=== PATIENT | female | born 1985 | race American Indian/Alaskan Native ===

== ENCOUNTER 2017-12-24 08:53 | Day surgery (SDC) | payer OTHER ==
[~2017-12-24 08:53] MED LIST: LACTATED RINGERS 1,000 ML IV SCH; PERCOCET 5/325 PO PRN; TORADOL IV PRN; VERSED IV NR; ZOFRAN IV PRN
[2017-12-24] MEDS ORDERED: ANCEF/STERILE WATER 2 GM/20 ML 2 GM/20 ML SYRINGE IV NR (10:00)
[2017-12-24] MEDS ORDERED: DILAUDID ONE (10:12)
[2017-12-24] MEDS ORDERED: DIPRIVAN 10 MG/ML IV ONE (10:12)
[2017-12-24] MEDS ORDERED: XYLOCAINE MPF 2% ONE (10:12)
--- NOTE | 2017-12-24 10:13 | Short Stay Summary ---
Short Stay Documentation Date of service: 12/24/17 Narrative H&P: Pt is a 32yo BF LMP 11/26/17 presents for surgical evaluation and treatment of prolonged heavy vaginal bleeding unresponsive to hormonal therapy. She is therefore scheduled for a Novasure endometrial ablation. - History Principal diagnosis: Menorrhagia H&P: obtained from office Past Medical History: No medical history Past Surgical History: No surgical history Social history: no significant social history, - Allergies and Medications Current Medications: Allergies No Known Allergies Allergy (Verified 12/24/17 07:29) Home Medications Medication Instructions Recorded Confirmed Last Taken Type No Known Home Medications [No 07/29/14 12/23/17 Unknown History Reported Home Medications] Active Medications Hydromorphone HCl (Dilaudid) 0.25 mg IV Q10MIN PRN PRN Reason: Pain, Moderate (4-6) Stop: 12/24/17 16:00 Lactated Ringer's (Lactated Ringers) 1,000 mls @ 100 mls/hr IV DIRECT SHANNA Last Admin: 12/24/17 09:59 Dose: 100 mls/hr Cefazolin Sodium (Ancef/Sterile Water 2 Gm/20 Ml) 2 gm in 20 mls @ 80 mls/hr IV PREOP NR; Protocol Ketorolac Tromethamine (Toradol) 30 mg IV ONCE PRN PRN Reason: Pain, Moderate (4-6) Midazolam HCl (Versed) 2 mg IV PREOP NR Stop: 12/24/17 23:59 Ondansetron HCl (Zofran) 4 mg IV ONCE PRN PRN Reason: Nausea And Vomiting Oxycodone/Acetaminophen (Percocet 5/325) 1 tab PO ONCE PRN PRN Reason: Pain, Moderate (4-6) - Physical exam General appearance: no acute distress Integumentary: no rash HEENT: Atraumatic Lungs: Clear to auscultation Breasts: deferred Heart: Regular rate Gastrointestinal: normal Female Genitourinary: deferred Rectal Exam: deferred Extremities: no ischemia, No edema Neurological: Normal gait, Normal speech - Brief post op/procedure progress note Date of procedure: 12/24/17 Pre-op diagnosis: Menorrhagia Post-op diagnosis: same Procedure: 1. Hysteroscopy 2. Novasure endometrial ablation Anesthesia: MAC Findings: An 8-10 weeks size uterus with moderate amounts of lush endometrium. No polyps or submucosal fibroids seen. Uterine cavity length 5.5cm width 4.8cm and 135 Ramirez of Power was used for 89 seconds. Surgeon: KATI ESCOBEDO Estimated blood loss: minimal Pathology: none Condition: stable - Hospital course Hospital course: Unremarkable. - Disposition Condition at discharge: Good Disposition: DC-01 TO HOME OR SELFCARE - Discharge Diagnoses (1) Menorrhagia with regular cycle Status: Resolved Short Stay Discharge Plan Activity: no restrictions Diet: regular Follow up with: ANNA PEDRAZA MD [Primary Care Provider] - 7 Days KATI ESCOBEDO MD [Staff Physician] - 14 Days Prescriptions: HYDROcodone/APAP 5-325 [[place] 5/325] 1 each PO Q6HR PRN #20 tablet PRN Reason: Pain
--- NOTE | 2017-12-24 10:22 | Anesthesia Consultation ---
Anesthesia Consult and Med Hx Date of service: 12/24/17 - Airway Anesthetic Teeth Evaluation: Good ROM Head & Neck: Adequate Mental/Hyoid Distance: Adequate Mallampati Class: Class I Intubation Access Assessment: Good - Pulmonary Exam CTA: Yes - Cardiac Exam Cardiac Exam: RRR - Pre-Operative Health Status ASA Pre-Surgery Classification: ASA1 Proposed Anesthetic Plan: General - Pulmonary Hx Smoking: No - Cardiovascular System Hx Hypertension: No - Central Nervous System Hx Neuromuscular Disorder: No Hx Psychiatric Problems: No - Other Systems Hx Cancer: No
--- NOTE | 2017-12-24 10:23 | Anesthesia Day of Surgery ---
Anesthesia Day of Surgery - Day of Surgery Patient Examined: Yes Patient H&P Reviewed: Yes Patient is NPO: Yes
[2017-12-24] MEDS ORDERED: NACL 0.9% IR ONE (10:52)
[2017-12-24] MEDS ORDERED: ZOFRAN ONE (10:58)
[2017-12-24] MEDS ORDERED: TORADOL ONE (10:58)
[2017-12-24 11:18] LABS: Hematocrit 27.5 % (30.3-42.9); Hemoglobin 8.7 gm/dl (10.1-14.3)
[2017-12-24] MEDS: DILAUDID IV PRN ×4 (11:25→11:52)
--- NOTE | 2017-12-24 11:36 | Post Anesthesia Evaluation ---
- Post Anesthesia Evaluation Patient Participated: Yes Airway Patent: Yes Stable Respiratory Function: Yes Nausea/Vomiting: No Temp > 96.8F: Yes Pain Manageable: Yes Adequeate Hydration: Yes Anesthesia Complications: No Block Receding Appropriately: Not Applicable Patient on Ventilator: No
--- NOTE | 2017-12-24 12:44 | Operative Report ---
Operative Report Operative Report: Date of procedure: 12/24/2017 Pre-operative diagnosis: Menorrhagia Post-operative diagnosis: Same Procedure name(s): 1. Hysteroscopy 2. NovaSure endometrial ablation Surgeon: Emanuel Martinez MD Language Path: None Anesthesia: Gen. mask EBL: 10 mL's Findings: An 8-10 week size uterus with moderate amount of lush endometrial tissue. No polyps or submucosal fibroids seen. Uterine cavity length was 5.5 cm, cavity width was 4.8 cm, and 135 W of power was used for 89 seconds to perform the ablation. Procedure: After the patient was correctly identified, she was prepped and draped in usual sterile fashion and placed in the dorsolithotomy position. First the bladder was emptied using a straight catheter. Next a speculum was placed in the vaginal vault and anterior lip of the cervix was grasped using single-tooth tenaculum. The uterus was sounded to 8 cm, and the endocervical os was sequentially dilated, and the hysteroscope was introduced into the cervical canal. Visualization of endometrial cavity showed a moderate amounts of lush endometrium. However no polyps or submucosal fibroids were seen. The hysteroscope was then removed and replaced by the NovaSure device. The uterine cavity length was set at 5.5 cm, the cavity width was 4.8 cm and after testing the device, 135 W of power was used for 89 seconds to perform the ablation. The NovaSure device was again replaced by the hysteroscope, showed adequate ablation of the entire endometrial cavity. At this point the procedure was considered complete. All instruments removed from the vagina. The patient tolerated the procedure well and was transferred to recovery in stable condition.
[2017-12-24] MEDS ORDERED: BENADRYL PO ONE (13:37)
[2017-12-24 14:06] VITALS: BP 110/65
== END 2017-12-24 12:57 | disposition home or self-care (01) ==
LOC: OR 08:53
PROVIDERS: ATTEND Obstetrics & Gynecology
DX: N92.0 Excessive and frequent menstruation with regular cycle (principal); Z91.040 Latex allergy status
CPT/HCPCS: 36415; 58563; 81025; 85014; 85018; A4217; J0690; J1170; J1885; J2405; J2704; J7120